=== PATIENT | female | born 1965 | race African-American/Black ===

== ENCOUNTER 2019-06-26 17:36 | Inpatient (IN) | payer OTHER ==
[2019-06-26 18:21] VITALS: BMI 36.3
--- NOTE | 2019-06-26 19:11 | HP ---
"CIWA Score Nausea/Vomitin-Mild Nausea/No Vomiting Muscle Tremors: 4-Moderate,w/Arms Extend Anxiety: 0-No Anxiety, at Ease Agitation: 1-Slight > Activity Paroxysmal Sweats: 2 Orientation: 0-Oriented Tacttile Disturbances: 2-Mild Itch/Numbness/Burn Auditory Disturbances: 2-Mild Harshness/Frighten Visual Disturbances: 2-Mild Sensitivity Headache: 2-Mild CIWA-Ar Total Score: 16 - Admission Criteria OASAS Guidelines: Admission for Medically Managed Detox: Requires at least one of the followin. CIWA greater than 12 2. Seizures within the past 24 hours 3. Delirium tremens within the past 24 hours 4. Hallucinations within the past 24 hours 5. Acute intervention needed for co occurring medical disorder 6. Acute intervention needed for co occurring psychiatric disorder 7. Severe withdrawal that cannot be handled at a lower level of care (continued vomiting, continued diarrhea, abnormal vital signs) requiring intravenous medication and/or fluids 8. Admission ROS [facility] Allergies/Adverse Reactions: Allergies Allergy/AdvReac Type Severity Reaction Status Date / Time No Known Allergies Allergy Verified 06/26/19 18:08 History of Present Illness: Search Terms: uriel luque, 1965 Search Date: 06/26/2019 07:06:03 PM The Drug Utilization Report below displays all of the controlled substance prescriptions, if any, that your patient has filled in the last twelve months. The information displayed on this report is compiled from pharmacy submissions to the Department, and accurately reflects the information as submitted by the pharmacies. This report was requested by: Kaia Honeycutt | Reference #: [id number] There are no results for the search terms that you entered. pt here requesting detox from etoh use, reports 4-5 pints/day since 1 yrs ago , latest use this morning , denies seizures, + blackouts , + tremors . cocaine : 8-10 bags/day denies IV tobacco : 1.5 -2 ppd pmhx : depression , denies SI/ HI pshx : denies menopausal since age 48 , no children Exam Limitations: Clinical Condition - Ebola screening Have you traveled outside of the country in the last 21 days: No (N) Have you had contact with anyone from an Ebola affected area: No Do you have a fever: No - Review of Systems Constitutional: Loss of Appetite EENT: reports: Other (glasses , denies dysphagia) Respiratory: reports: No Symptoms reported Cardiac: reports: No Symptoms Reported GI: reports: Poor Appetite : reports: No Symptoms Reported Musculoskeletal: reports: Joint Pain (left knee abrasion s/p / does not recall fall) Integumentary: reports: Bruising (left knee) Neuro: reports: Headache Endocrine: reports: No Symptoms Reported Hematology: reports: No Symptoms Reported Psychiatric: reports: Agitated, Anxious, Depressed Patient History - Smoking Cessation Smoking history: Current every day smoker Have you smoked in the past 12 months: Yes Hx Chewing Tobacco Use: No Initiated information on smoking cessation: No - Substances abused Alcohol Substance route: Oral Frequency: Daily Amount used: liquor- 3 pints, beer- 12 pack Age of first use: 13 Date of last use: 06/26/19 Crack Substance route: Smoking Frequency: Daily Amount used: 10 bags Age of first use: 20 Date of last use: 06/25/19 Admission Physical Exam S - Vital Signs Vital Signs: Vital Signs - 24 hr 06/26/19 18:06 Temperature 97.8 F Pulse Rate 96 H Respiratory 18 Rate Blood Pressure 119/74 - Physical General Appearance: Yes: Mild Distress, Anxious HEENTM: Yes: EOMI, Hearing grossly Normal, Pharynx Normal, Tm's normal, Muffled/ Hoarse Voice Respiratory: Yes: Chest Non-Tender, Lungs Clear, Normal Breath Sounds, No Respiratory Distress, No Accessory Muscle Use Neck: Yes: No masses,lesions,Nodules, Trachea in good position Cardiology: Yes: Regular Rhythm, Regular Rate, S1, S2 Abdominal: Yes: Non Tender, Soft Musculoskeletal: Yes: Gait Steady Neurological: Yes: Fully Oriented, Alert, Motor Strength 5/5, Depressed Affect Integumentary: Yes: Warm, Other (superificial abrasion left knee, full ROM) - Diagnostic (1) Alcohol abuse Current Visit: Yes Status: Chronic (2) Cocaine dependence Current Visit: Yes Status: Chronic Qualifiers: Substance use status: uncomplicated Qualified Code(s): F14.20 - Cocaine dependence, uncomplicated (3) Nicotine dependence Current Visit: Yes Status: Chronic Qualifiers: Nicotine product type: cigarettes Breathalyzer - Breathalyzer Breathalyzer: 0 Urine Drug Screen - Test Device Lot number: [id number] Expiration date: 07/31/21 - Control Is test valid?: Yes - Results Drug screen NEGATIVE: No Urine drug screen results: NOEMI-Cocaine Inpatient Rehab Admission - Rehab Decision to Admit Inpatient rehab admission?: No"
[2019-06-26] MEDS ORDERED: NICOTINE POLACRILEX 2 MG GUM BUC PRN (19:16)
[2019-06-26] MEDS ORDERED: hydrOXYzine PAMOATE 25 MG CAPSULE (FP) PO PRN (19:16)
[2019-06-26] MEDS ORDERED: MAGNESIUM HYDROX 2400MG/30ML ORAL SUSPENSION 30 ML CUP PO PRN (19:16)
[2019-06-26] MEDS ORDERED: MENTHOL/PHENOL 1 EACH UD MM PRN (19:16)
[2019-06-26] MEDS ORDERED: MAGNESIUM CITRATE 300 ML BOTTLE PO PRN (19:16)
[2019-06-26] MEDS ORDERED: BISMUTH SUBSALICYLATE 524 MG/30 ML UD PO PRN (19:16)
[2019-06-26] MEDS ORDERED: MAG HYDROX/AL HYDROX/SIMETH 30 ML UNIT-DOSE CUP PO PRN (19:16)
[2019-06-26] MEDS ORDERED: ACETAMINOPHEN 325 MG TABLET (FP) PO PRN ×2 (19:16)
[2019-06-26] MEDS ORDERED: chlordiazePOXIDE HCL 10 MG CAPSULE PO PRN (19:18)
[2019-06-26] MEDS: METHOCARBAMOL 500 MG TABLET PO PRN (20:29)
[2019-06-26] MEDS: chlordiazePOXIDE HCL 25 MG CAPSULE PO SCH (20:29)
[2019-06-26] MEDS ORDERED: MELATONIN 5 MG TABLETS PO PRN (22:00)
[2019-06-26] MEDS: THIAMINE HCL 100 MG TABLET (FP) PO SCH (22:48)
[2019-06-26] MEDS: IBUPROFEN 400 MG TABLET (FP) PO PRN (22:50)
[2019-06-26] MEDS: BACITRACIN/POLYMYXIN B SULFATE 15 GM TUBE TP SCH (22:52)
[2019-06-27] MEDS: chlordiazePOXIDE HCL 25 MG CAPSULE PO SCH ×3 (05:42→22:23)
[2019-06-27] MEDS: BACITRACIN/POLYMYXIN B SULFATE 15 GM TUBE TP SCH ×2 (09:19→22:24)
[2019-06-27] MEDS: IBUPROFEN 400 MG TABLET (FP) PO PRN (09:19)
[2019-06-27] MEDS: NICOTINE 14 MG/24 HOURS TOPICAL PATCH TD SCH (09:20)
[2019-06-27] MEDS: PRENATAL VITAMINS W/ FOLIC ACID TABLET (FP) PO SCH (09:20)
[2019-06-27 10:41] LABS: HEMATOCRIT 37.3 % (32.4-45.2); HEMOGLOBIN 12.5 GM/dL (10.7-15.3); MCH 33.3 pg (25.7-33.7); MCHC 33.6 g/dl (32.0-36.0); MEAN CELL VOLUME 99.1 fl (80-96); MEAN PLT VOLUME 8.9 fl (7.5-11.1); PLATELET COUNT 278 K/MM3 (134-434); RBC 3.77 M/mm3 (3.60-5.2); RDW 12.6 % (11.6-15.6); WHITE BLOOD COUNT 6.1 K/mm3 (4.0-10.0)
[2019-06-27 10:51] LABS: ALBUMIN 3.9 g/dl (3.4-5.0); BLOOD UREA NITROGEN 32.3 mg/dL (7-18); CALCIUM 8.6 mg/dL (8.5-10.1); CREATININE 1.5 mg/dL (0.55-1.3); POTASSIUM 4.3 mmol/L (3.5-5.1); TOT PROT 7.3 g/dl (6.4-8.2)
--- NOTE | 2019-06-27 11:50 | PN ---
S CIWA - CIWA Score Nausea/Vomitin-Mild Nausea/No Vomiting Muscle Tremors: 3 Anxiety: 4-Mod. Anxious/Guarded Agitation: 2 Paroxysmal Sweats: 2 Orientation: 0-Oriented Tacttile Disturbances: 1-Very Mild Itch/Numbness (left knee) Auditory Disturbances: 0-None Visual Disturbances: 0-None Headache: 0-None Present CIWA-Ar Total Score: 13 BHS Progress Note (SOAP) Subjective: 53 years old female admitted on 06/26/19 for alcohol withdrawal sx management treating with librium detox regimen left knee skin abrasion clean with saline solution pad dry cover with gauze no redness o swell non tender no exudate ambulating from bed to bathroom steady gait Objective: 06/27/19 11:52 Vital Signs Temperature 97.6 F 06/27/19 09:07 Pulse Rate 87 06/27/19 09:07 Respiratory Rate 16 06/27/19 09:07 Blood Pressure 111/66 06/27/19 09:07 O2 Sat by Pulse Oximetry (%) Laboratory Last Values WBC 6.1 K/mm3 (4.0-10.0) 06/27/19 07:20 RBC 3.77 M/mm3 (3.60-5.2) 06/27/19 07:20 Hgb 12.5 GM/dL (10.7-15.3) 06/27/19 07:20 Hct 37.3 % (32.4-45.2) 06/27/19 07:20 MCV 99.1 fl (80-96) H 06/27/19 07:20 MCH 33.3 pg (25.7-33.7) 06/27/19 07:20 MCHC 33.6 g/dl (32.0-36.0) 06/27/19 07:20 RDW 12.6 % (11.6-15.6) 06/27/19 07:20 Plt Count 278 K/MM3 (134-434) 06/27/19 07:20 MPV 8.9 fl (7.5-11.1) 06/27/19 07:20 Sodium 136 mmol/L (136-145) 06/27/19 07:20 Potassium 4.3 mmol/L (3.5-5.1) 06/27/19 07:20 Chloride 104 mmol/L (98-107) 06/27/19 07:20 Carbon Dioxide 26 mmol/L (21-32) 06/27/19 07:20 Anion Gap 6 MMOL/L (8-16) L 06/27/19 07:20 BUN 32.3 mg/dL (7-18) H 06/27/19 07:20 Creatinine 1.5 mg/dL (0.55-1.3) H 06/27/19 07:20 Est GFR (CKD-EPI)AfAm 45.95 06/27/19 07:20 Est GFR (CKD-EPI)NonAf 39.64 06/27/19 07:20 Random Glucose 122 mg/dL (74-106) H 06/27/19 07:20 Calcium 8.6 mg/dL (8.5-10.1) 06/27/19 07:20 Total Bilirubin 1.0 mg/dL (0.2-1) 06/27/19 07:20 AST 27 U/L (15-37) 06/27/19 07:20 ALT 21 U/L (13-61) 06/27/19 07:20 Alkaline Phosphatase 67 U/L (45-117) 06/27/19 07:20 Total Protein 7.3 g/dl (6.4-8.2) 06/27/19 07:20 Albumin 3.9 g/dl (3.4-5.0) 06/27/19 07:20 RPR Titer Nonreactive (NONREACTIVE) 06/27/19 07:20 lab noted bun elevation repeat bun Assessment: 06/27/19 11:54 alcohol withdrawal Plan: librium regimen
--- NOTE | 2019-06-27 14:39 | CONSULT ---
[facility] Psychiatric Consult - Data Date of interview: 06/27/19 Admission source: [facility] Identifying data: Patient is a 53 year old single female, without children, domiciled, and currently employed. This is patient's first admission to detox at [facility]. Patient admitted to for alcohol and cocaine dependence. Substance Abuse History: Smoking Cessation. Smoking history: Current every day smoker. Have you smoked in the past 12 months: Yes. Hx Chewing Tobacco Use: No. Initiated information on smoking cessation: No. - Substances abused. Alcohol. Substance route: Oral. Frequency: Daily. Amount used: liquor- 3 pints, beer- 12 pack. Age of first use: 13. Date of last use: 06/26/19. Crack. Substance route: Smoking. Frequency: Daily. Amount used: 10 bags. Age of first use: 20. Date of last use: 06/25/19 Medical History: denies. endorses good health. Psychiatric History: Patient denies history of psychiatric hospitalization and suicide attempt. Ms. Gupta first psychiatric contact was at [place] [facility] approximately three years ago. She continues to receive treatment at same location and claims to be prescribed wellbutrin (unknown dose ). Diagnosis of depression. Patient not interested in resuming wellbutrin. Physical/Sexual Abuse/Trauma History: denies. Mental Status Exam - Mental Status Exam Alert and Oriented to: Time, Place, Person Cognitive Function: Good Patient Appearance: Well Groomed Mood: Withdrawn Affect: Mood Congruent Patient Behavior: Cooperative Speech Pattern: Appropriate Voice Loudness: Normal Thought Process: Goal Oriented Thought Disorder: Not Present Hallucinations: Denies Suicidal Ideation: Denies Homicidal Ideation: Denies Insight/Judgement: Poor Sleep: Poorly Appetite: Fair Muscle strength/Tone: Normal Gait/Station: Normal Psychiatric Findings - Problem List ([place] 1, 2,3) (1) Alcohol abuse Status: Chronic (2) Cocaine dependence Status: Chronic Qualifiers: Substance use status: uncomplicated Qualified Code(s): F14.20 - Cocaine dependence, uncomplicated (3) Nicotine dependence Status: Acute Qualifiers: Nicotine product type: cigarettes Substance use status: in withdrawal Qualified Code(s): F17.213 - Nicotine dependence, cigarettes, with withdrawal (4) Substance induced mood disorder Status: Suspected - Initial Treatment Plan Initial Treatment Plan: Psychoeducation provided. Rehab in progress. Observation.
[2019-06-27] MEDS: THIAMINE HCL 100 MG TABLET (FP) PO SCH (22:23)
[2019-06-27] MEDS: METHOCARBAMOL 500 MG TABLET PO PRN (22:24)
[2019-06-28] MEDS: chlordiazePOXIDE HCL 10 MG CAPSULE PO SCH ×3 (05:21→22:14)
[2019-06-28] MEDS: NICOTINE 14 MG/24 HOURS TOPICAL PATCH TD SCH (10:11)
[2019-06-28] MEDS: PRENATAL VITAMINS W/ FOLIC ACID TABLET (FP) PO SCH (10:11)
[2019-06-28] MEDS: BACITRACIN/POLYMYXIN B SULFATE 15 GM TUBE TP SCH ×2 (10:11→22:14)
--- NOTE | 2019-06-28 13:24 | PN ---
S CIWA - CIWA Score Nausea/Vomitin-No Nausea/No Vomiting Muscle Tremors: 2 Anxiety: 2 Agitation: 2 Paroxysmal Sweats: 1-Minimal Palms Moist Orientation: 0-Oriented Tacttile Disturbances: 0-None Auditory Disturbances: 0-None Visual Disturbances: 0-None Headache: 1-Very Mild CIWA-Ar Total Score: 8 BHS Progress Note (SOAP) Subjective: 53 years old female admitted on 06/26/19 for alcohol withdrawal sx management treating with librium detox regimen feeling better today prefers to return home and back to work tomorrow less tremor mild anxiety Objective: 06/28/19 13:28 Vital Signs Temperature 97.9 F 06/28/19 13:06 Pulse Rate 88 06/28/19 13:06 Respiratory Rate 18 06/28/19 13:06 Blood Pressure 120/70 06/28/19 13:06 O2 Sat by Pulse Oximetry (%) Laboratory Last Values WBC 6.1 K/mm3 (4.0-10.0) 06/27/19 07:20 RBC 3.77 M/mm3 (3.60-5.2) 06/27/19 07:20 Hgb 12.5 GM/dL (10.7-15.3) 06/27/19 07:20 Hct 37.3 % (32.4-45.2) 06/27/19 07:20 MCV 99.1 fl (80-96) H 06/27/19 07:20 MCH 33.3 pg (25.7-33.7) 06/27/19 07:20 MCHC 33.6 g/dl (32.0-36.0) 06/27/19 07:20 RDW 12.6 % (11.6-15.6) 06/27/19 07:20 Plt Count 278 K/MM3 (134-434) 06/27/19 07:20 MPV 8.9 fl (7.5-11.1) 06/27/19 07:20 Sodium 136 mmol/L (136-145) 06/27/19 07:20 Potassium 4.3 mmol/L (3.5-5.1) 06/27/19 07:20 Chloride 104 mmol/L (98-107) 06/27/19 07:20 Carbon Dioxide 26 mmol/L (21-32) 06/27/19 07:20 Anion Gap 6 MMOL/L (8-16) L 06/27/19 07:20 BUN 19.5 mg/dL (7-18) H 06/28/19 07:25 Creatinine 1.5 mg/dL (0.55-1.3) H 06/27/19 07:20 Est GFR (CKD-EPI)AfAm 45.95 06/27/19 07:20 Est GFR (CKD-EPI)NonAf 39.64 06/27/19 07:20 Random Glucose 122 mg/dL (74-106) H 06/27/19 07:20 Calcium 8.6 mg/dL (8.5-10.1) 06/27/19 07:20 Total Bilirubin 1.0 mg/dL (0.2-1) 06/27/19 07:20 AST 27 U/L (15-37) 06/27/19 07:20 ALT 21 U/L (13-61) 06/27/19 07:20 Alkaline Phosphatase 67 U/L (45-117) 06/27/19 07:20 Total Protein 7.3 g/dl (6.4-8.2) 06/27/19 07:20 Albumin 3.9 g/dl (3.4-5.0) 06/27/19 07:20 POC Urine HCG, Qual Negative 06/26/19 19:36 RPR Titer Nonreactive (NONREACTIVE) 06/27/19 07:20 lab noted Assessment: 06/28/19 13:28 alcohol withdrawal Plan: libirum regimen
[2019-06-28] MEDS: THIAMINE HCL 100 MG TABLET (FP) PO SCH (22:14)
[2019-06-29] MEDS ORDERED: chlordiazePOXIDE HCL 10 MG CAPSULE PO ONE (05:00)
[2019-06-29 09:08] VITALS: BP 133/77; PULSE 93; TEMP 96.6
--- NOTE | 2019-06-29 13:50 | DS ---
[facility] Detox Discharge Summary Admission Date: 06/26/19 Discharge Date: 06/29/19 - History Present History: Alcohol Dependence Additional Comments: 53 years old female admitted on 06/26/19 for alcohol withdrawal sx management treated with librium detox regimen patient has completed the librium regimen and tolerated well alert oriented x 3 respiratory clear lungs bilaterally on auscultation extremities full range of motion abdomen soft round obese no rebound tenderness Pertinent Past History: patient prefers to return home today and follow up with his primary care provider and return to work if possible - Physical Exam Results Vital Signs: Vital Signs Temperature 96.6 F L 06/29/19 09:07 Pulse Rate 93 H 06/29/19 09:07 Respiratory Rate 16 06/29/19 09:07 Blood Pressure 133/77 06/29/19 09:07 O2 Sat by Pulse Oximetry (%) Pertinent Admission Physical Exam Findings: alcohol withdrawal Laboratory Last Values WBC 6.1 K/mm3 (4.0-10.0) 06/27/19 07:20 RBC 3.77 M/mm3 (3.60-5.2) 06/27/19 07:20 Hgb 12.5 GM/dL (10.7-15.3) 06/27/19 07:20 Hct 37.3 % (32.4-45.2) 06/27/19 07:20 MCV 99.1 fl (80-96) H 06/27/19 07:20 MCH 33.3 pg (25.7-33.7) 06/27/19 07:20 MCHC 33.6 g/dl (32.0-36.0) 06/27/19 07:20 RDW 12.6 % (11.6-15.6) 06/27/19 07:20 Plt Count 278 K/MM3 (134-434) 06/27/19 07:20 MPV 8.9 fl (7.5-11.1) 06/27/19 07:20 Sodium 136 mmol/L (136-145) 06/27/19 07:20 Potassium 4.3 mmol/L (3.5-5.1) 06/27/19 07:20 Chloride 104 mmol/L (98-107) 06/27/19 07:20 Carbon Dioxide 26 mmol/L (21-32) 06/27/19 07:20 Anion Gap 6 MMOL/L (8-16) L 06/27/19 07:20 BUN 19.5 mg/dL (7-18) H 06/28/19 07:25 Creatinine 1.5 mg/dL (0.55-1.3) H 06/27/19 07:20 Est GFR (CKD-EPI)AfAm 45.95 06/27/19 07:20 Est GFR (CKD-EPI)NonAf 39.64 06/27/19 07:20 Random Glucose 122 mg/dL (74-106) H 06/27/19 07:20 Calcium 8.6 mg/dL (8.5-10.1) 06/27/19 07:20 Total Bilirubin 1.0 mg/dL (0.2-1) 06/27/19 07:20 AST 27 U/L (15-37) 06/27/19 07:20 ALT 21 U/L (13-61) 06/27/19 07:20 Alkaline Phosphatase 67 U/L (45-117) 06/27/19 07:20 Total Protein 7.3 g/dl (6.4-8.2) 06/27/19 07:20 Albumin 3.9 g/dl (3.4-5.0) 06/27/19 07:20 POC Urine HCG, Qual Negative 06/26/19 19:36 RPR Titer Nonreactive (NONREACTIVE) 06/27/19 07:20 lab noted - Treatment Hospital Course: Detox Protocol Followed, Detoxed Safely, Responded well, Discharged Condition Good, Rehab Referral Accepted Patient [facility] Accept[facility] - Medication Discharge Medications: Ambulatory Orders NK [No Known Home Medication] 06/26/19 - Diagnosis (1) Alcohol dependence, uncomplicated Status: Acute (2) Nicotine dependence Status: Acute Qualifiers: Nicotine product type: cigarettes Substance use status: in withdrawal Qualified Code(s): F17.213 - Nicotine dependence, cigarettes, with withdrawal (3) Substance induced mood disorder Status: Suspected - AMA Did Patient Leave Against Medical Advice: No CIWA Score - CIWA Score Nausea/Vomitin-No Nausea/No Vomiting Muscle Tremors: 1-None Visible, but [place] Anxiety: 1-Mildly Anxious Agitation: 1-Slight > Activity Paroxysmal Sweats: No Perspiration Orientation: 0-Oriented Tacttile Disturbances: 0-None Auditory Disturbances: 0-None Visual Disturbances: 0-None Headache: 1-Very Mild CIWA-Ar Total Score: 4
== END 2019-06-29 10:10 | disposition home or self-care (01) | DRG 774 ==
LOC: YASAS 17:36 → EDSEX 17:36 → Y3N 19:36
PROVIDERS: ADMIT Allergy & Immunology; ATTEND Allergy & Immunology
PROC: HZ2ZZZZ Detoxification Services for Substance Abuse Treatment (ICD-10-PCS; principal; 2019-06-26)
DX: F10.230 Alcohol dependence with withdrawal, uncomplicated (principal); F14.20 Cocaine dependence, uncomplicated; F17.210 Nicotine dependence, cigarettes, uncomplicated; F19.24 Other psychoactive substance dependence with psychoactive substance-induced mood disorder; F32.9 Major depressive disorder, single episode, unspecified; E66.9 Obesity, unspecified; Z68.36 Body mass index [BMI] 36.0-36.9, adult
CPT/HCPCS: 36415; 80053; 81025; 84520; 85027; 86593